=== PATIENT | male | born 1945 | race Caucasian/White ===

== ENCOUNTER → 2024-05-19 | Outpatient (REF) | payer MEDICARE ==
[~2024-05-19] MED LIST: IOPAMIDOL 370 MG/ML 100 ML INFUS..BTL INJ ONE; NITROGLYCERIN 0.4 MG SUBL ONE
[2024-05-19 08:24] LABS: CREATININE, SERUM 1.38 mg/dL (0.72-1.25)
== END ==
LOC: CT 07:36
PROVIDERS: ATTEND Internal Medicine Cardiovascular Disease
DX: I20.9 Angina pectoris, unspecified (principal)
CPT/HCPCS: 36415; 75574; 82565; 84520; Q9967

== ENCOUNTER 2025-07-02 19:46 | Emergency (ER) | payer MEDICARE ==
[~2025-07-02] VITALS: Ht 180.3 cm; Wt 79.4 kg
[2025-07-02 20:19] VITALS: TEMP 97.3
[2025-07-02 20:38] VITALS: PULSE 72; RESP 17
[2025-07-02 21:08] LABS: BASOPHILS % 0.4 % (0.0-1.0); EOSINOPHILS % 0.5 % (0.0-6.0); LYMPHOCYTES % 9.3 % (18.0-39.1); MONOCYTES % 8.6 % (4.4-11.3); NEUTROPHILS % 80.7 % (38.7-80.0); RED CELL DISTRIBUTION WIDTH 15.0 % (11.7-14.4)
[2025-07-02 21:22] LABS: EST GLOMERULAR FILTRATION RATE 38.0 ML/MIN (>=60)
[2025-07-02] MEDS: SODIUM CHLORIDE 0.9% 1000ML 1,000 ML IV ONE (22:01)
[2025-07-02 22:32] LABS: LEUKOCYTE ESTERASE ,URINE NEGATIVE (NEGATIVE); PROTEIN,URINE DIPSTICK 1+ (NEGATIVE); URINE UROBILINOGEN 0.2 mg/dL (0.2 - 1)
[2025-07-02 22:36] LABS: EPITHELIAL CELLS,URINE MODERATE /LPF
[2025-07-02] MEDS ORDERED: ONDANSETRON ODT4 MG SL (23:09)
[2025-07-02] MEDS ORDERED: CEFDINIR300 MG PO (23:09)
[2025-07-02 23:27] VITALS: BP 129/66; PULSE 63; RESP 17; TEMP 98.2; O2SAT 100
== END 2025-07-02 23:34 | disposition home or self-care (01) ==
LOC: ER 22:20
DX: R10.30 Lower abdominal pain, unspecified (principal); N39.0 Urinary tract infection, site not specified; R11.10 Vomiting, unspecified; E86.0 Dehydration; N20.0 Calculus of kidney; I10 Essential (primary) hypertension; E78.5 Hyperlipidemia, unspecified; I25.2 Old myocardial infarction; Z95.5 Presence of coronary angioplasty implant and graft; F17.210 Nicotine dependence, cigarettes, uncomplicated
CPT/HCPCS: 36415; 74176; 80053; 81001; 85025; 99284; J7030